=== PATIENT | male | born 1995 | race Caucasian/White ===

== ENCOUNTER 2019-12-21 17:38 | Emergency (ER) | payer MEDICAID ==
[~2019-12-21] VITALS: Ht 180.3 cm; Wt 100.0 kg
[2019-12-21 18:24] VITALS: BP 126/81
== END 2019-12-21 20:34 | disposition home or self-care (01) ==
LOC: ER 17:39
DX: M25.561 Pain in right knee (principal); M25.551 Pain in right hip; X50.1XXA Overexertion from prolonged static or awkward postures, initial encounter; Y93.89 Activity, other specified; Y92.89 Other specified places as the place of occurrence of the external cause; Y99.9 Unspecified external cause status
CPT/HCPCS: 29505; 73502; 73560; 99284